=== PATIENT | female | born 1975 | race American Indian/Alaskan Native ===

== ENCOUNTER 2017-04-17 13:58 | Emergency (ER) | payer SELFPAY ==
[2017-04-17] MEDS ORDERED: ZOFRAN ODT ONE (14:23)
[2017-04-17] MEDS ORDERED: ANTIVERT ONE (14:23)
[2017-04-17] MEDS ORDERED: ZOFRAN ODT PO ONE (14:24)
[2017-04-17] MEDS ORDERED: ANTIVERT PO ONE ×2 (14:24→20:25)
[2017-04-17 14:38] LABS: Mean Corpuscular HGB Conc 30 % (30-34); Mean Corpuscular Hemoglobin 26 pg (28-32); Mean Corpuscular Volume 87 fl (79-97); Platelet Count 354 K/mm3 (140-440); Red Blood Count 4.26 M/mm3 (3.65-5.03); Red Cell Distribution Width 16.2 % (13.2-15.2); White Blood Count 9.2 K/mm3 (4.5-11.0)
[2017-04-17 14:57] LABS: Anion Gap 19 mmol/L; BUN/Creatinine Ratio 8; Blood Urea Nitrogen 5 mg/dL (7-17); Calcium 9.1 mg/dL (8.4-10.2); Carbon Dioxide 21 mmol/L (22-30); Chloride 104.3 mmol/L (98-107); Glucose 156 mg/dL (65-100); Potassium 3.7 mmol/L (3.6-5.0); Sodium 141 mmol/L (137-145)
[2017-04-17 15:08] LABS: Hematocrit 37.1 % (30.3-42.9); Hemoglobin 11.3 gm/dl (10.1-14.3)
[2017-04-17 18:30] LABS: Bacteria,Urine 1+ /HPF (Negative); Bilirubin,Urine NEG (Negative); Blood,Urine NEG (Negative); Ketones,Urine NEG (Negative); Leukocyte Esterase,Urine NEG (Negative); Mucus,Urine 1+ /HPF; Nitrite,Urine NEG (Negative); Protein,Urine <15 mg/dL mg/dL (Negative); Urobilinogen,Urine < 2.0 mg/dL (<2.0)
[2017-04-17] MEDS ORDERED: ZOFRAN IV ONE (20:25)
--- NOTE | 2017-04-17 20:50 | Emergency Department Report ---
ED Dizziness HPI - General Chief Complaint: Dizziness Stated Complaint: DIZZINESS Time Seen by Provider: 04/17/17 20:07 Source: patient Mode of arrival: Wheelchair Limitations: No Limitations - History of Present Illness Initial Comments: 41-year-old female with a past medical history of previous vertigo and iron deficiency anemia currently on iron tablets presents to the hospital complaining of sudden onset of dizziness with nausea and vomiting today. Patient having a hissing sound in her left ear. Symptoms worse with head movement to the left and improved with remaining still. Similar episode in 2010. No recent trauma, headache, focal weakness or numbness reported. - Related Data Previous Rx's Medication Instructions Recorded Last Taken Type Meclizine [Antivert] 25 mg PO TID PRN #30 tablet 04/17/17 Unknown Rx Ondansetron [Zofran Odt] 4 mg PO Q8HR PRN #20 tab.rapdis 04/17/17 Unknown Rx Allergies Allergy/AdvReac Type Severity Reaction Status Date / Time No Known Allergies Allergy Unverified 04/17/17 14:13 ED Review of Systems ROS: Stated complaint: DIZZINESS Other details as noted in HPI Comment: All other systems reviewed and negative Other: Constitutional: No fevers chills Eyes: No eye pain visual changes or discharge ENT: No ear pain or throat pain Neck: Denies pain Respiratory: Denies cough wheezing shortness of breath Cardiovascular: Denies chest pain, palpitations, syncope GI: Denies abdominal pain : Denies dysuria Musculoskeletal: Denies back pain Skin: Denies rash, lesions, erythema Neurologic: Denies headache, numbness, weakness Psychiatric: Denies suicidal ideation, hallucinations ED Past Medical Hx - Past Medical History Additional medical history: anemia - Social History Smoking Status: Never Smoker Substance Use Type: None - Medications Home Medications: Home Medications Medication Instructions Recorded Confirmed Last Taken Type Meclizine [Antivert] 25 mg PO TID PRN #30 tablet 04/17/17 Unknown Rx Ondansetron [Zofran Odt] 4 mg PO Q8HR PRN #20 tab.rapdis 04/17/17 Unknown Rx ED Physical Exam - General Limitations: No Limitations - Other Other exam information: General: No limitations, patient is alert in no acute distress Head exam: Atraumatic, normocephalic Eyes exam: Normal appearance, pupils equal reactive to light, extraocular movements intact, CT nystagmus with left gaze ENT: Moist mucous membrane, normal oropharynx, bilateral TMs normal without erythema or fluid Neck exam: Normal inspection, full range of motion, no meningismus nontender Respiratory exam: Clear to auscultation bilateral, no wheezes, rales, crackles Cardiovascular: Normal rate and rhythm, normal heart sounds Abdomen: Soft, nondistended, and nontender, with normal bowel sounds, no rebound, or guarding Extremity: Full range of motion normal inspection no deformity Back: Normal Inspection, full range of motion, no tenderness Neurologic: Alert, oriented x3, cranial nerves intact, no motor or sensory deficit, [id number] function intact Psychiatric: normal affect, normal mood Skin: Warm, dry, intact ED Course Vital Signs 04/17/17 04/17/17 04/17/17 14:06 19:52 20:00 Temperature 97.5 F L Pulse Rate 52 L 74 65 Respiratory 18 14 11 L Rate Blood Pressure 131/78 137/75 O2 Sat by Pulse 100 100 100 Oximetry 04/17/17 04/17/17 04/17/17 20:15 20:18 20:45 Temperature Pulse Rate 82 Respiratory 15 18 Rate Blood Pressure 135/78 142/80 O2 Sat by Pulse 100 100 Oximetry 04/17/17 04/17/17 04/17/17 21:00 21:15 21:37 Temperature Pulse Rate 66 61 Respiratory 14 20 Rate Blood Pressure 134/81 134/81 142/80 O2 Sat by Pulse 100 100 99 Oximetry 04/17/17 21:45 Temperature Pulse Rate 67 Respiratory 12 Rate Blood Pressure 136/74 O2 Sat by Pulse 100 Oximetry - Reevaluation(s) Reevaluation #1: 04/17/17 20:50 Patient reports improvement in symptoms with Antivert and Zofran received at 2: 30 PM prior to my arrival. She has some mild persistent symptoms therefore additional doses ordered ED Medical Decision Making - Lab Data Result diagrams: 04/17/17 14:25 04/17/17 14:25 Lab Results 04/17/17 04/17/17 04/17/17 Range/Units 14:25 14:25 17:47 WBC 9.2 (4.5-11.0) K/mm3 RBC 4.26 (3.65-5.03) M/mm3 Hgb 11.3 (10.1-14.3) gm/dl Hct 37.1 (30.3-42.9) % MCV 87 (79-97) fl MCH 26 L (28-32) pg MCHC 30 (30-34) % RDW 16.2 H (13.2-15.2) % Plt Count 354 (140-440) K/mm3 Sodium 141 (137-145) mmol/L Potassium 3.7 (3.6-5.0) mmol/L Chloride 104.3 (98-107) mmol/L Carbon Dioxide 21 L (22-30) mmol/L Anion Gap 19 mmol/L BUN 5 L (7-17) mg/dL Creatinine 0.6 L (0.7-1.2) mg/dL Estimated GFR > 60 ml/min BUN/Creatinine Ratio 8 % Glucose 156 H (65-100) mg/dL Calcium 9.1 (8.4-10.2) mg/dL Urine Color Yellow (Yellow) Urine Turbidity Clear (Clear) Urine pH 6.0 (5.0-7.0) Ur Specific [place] 1.021 (1.003-1.030) Urine Protein <15 mg/dl (Negative) mg/dL Urine Glucose (UA) Neg (Negative) mg/dL Urine Ketones Neg (Negative) mg/dL Urine Blood Neg (Negative) Urine Nitrite Neg (Negative) Urine Bilirubin Neg (Negative) Urine Urobilinogen < 2.0 (<2.0) mg/dL Ur Leukocyte Esterase Neg (Negative) Urine WBC (Auto) 9.0 H (0.0-6.0) /HPF Urine RBC (Auto) 2.0 (0.0-6.0) /HPF U Epithel Cells (Auto) 1.0 (0-13.0) /HPF Urine Bacteria (Auto) 1+ (Negative) /HPF Urine Mucus 1+ /HPF - Medical Decision Making Positive improvement in the ED after Antivert and Zofran treatment. Patient be discharged home with follow-up - Differential Diagnosis vertigo, tinnitus, Mnire's, VBI, CVA Critical Care Time: No Critical care attestation.: If time is entered above; I have spent that time in minutes in the direct care of this critically ill patient, excluding procedure time. ED Disposition Clinical Impression: Vertigo Disposition: DC-01 TO HOME OR SELFCARE Is pt being admited?: No Does the pt Need Aspirin: No Condition: Stable Instructions: Vertigo (ED) Additional Instructions: Take the medication as prescribed. Return if symptoms worsen. Follow-up with the ear nose throat doctor provided. Prescriptions: Meclizine [Antivert] 25 mg PO TID PRN #30 tablet PRN Reason: Vertigo Ondansetron [Zofran Odt] 4 mg PO Q8HR PRN #20 tab.rapdis PRN Reason: Nausea And Vomiting Referrals: ANGY FOSTER MD [Staff Physician] - 3-5 Days Time of Disposition: 22:06
[2017-04-17 23:01] VITALS: BP 123/70
== END 2017-04-17 23:02 | disposition home or self-care (01) ==
LOC: ED 13:58
DX: R42 Dizziness and giddiness (principal)
CPT/HCPCS: 36415; 80048; 81001; 85027; 96374; 99284; J2405; Q0162